=== PATIENT | male | born 1985 | race Two or more races ===

== ENCOUNTER 2018-01-17 20:10 | Emergency (ER) | payer BC ==
[~2018-01-17] VITALS: Ht 167.6 cm; Wt 75.7 kg
--- NOTE | 2018-01-17 20:26 | NUR ---
Dr. Bardales at bedside for MSE.
[2018-01-17 20:54] LABS: BASOPHILS % (AUTO) 0.4 % (0.0-2.0); EOSINOPHILS # (AUTO) 0.2 K/uL (0.0-0.7); EOSINOPHILS % (AUTO) 2.8 % (0.0-7.0); HEMATOCRIT 41.1 % (36.7-47.1); HEMOGLOBIN 14.2 g/dL (12.5-16.3); LYMPHOCYTES # (AUTO) 2.8 K/uL (20.0-40.0); LYMPHOCYTES % (AUTO) 46.6 % (20.5-51.5); MEAN CORPUSCULAR HEMOGLOBIN 31.2 uug (23.8-33.4); MEAN CORPUSCULAR HGB CONC 35 g/dL (32.5-36.3); MONOCYTES # (AUTO) 0.6 K/uL (2.0-10.0); MONOCYTES % (AUTO) 10.5 % (0.0-11.0); NEUTROPHILS # (AUTO) 2.4 K/uL (1.8-8.9); NEUTROPHILS % (AUTO) 39.7 % (38.5-71.5); PLATELET COUNT (AUTO) 257 K/uL (152-348); RED BLOOD CELL COUNT(AUTO) 4.57 MIL/uL (4.06-5.63); WHITE BLOOD COUNT (AUTO) 6.1 K/uL (3.6-10.2)
[2018-01-17 21:07] LABS: CREATININE 0.9 mg/dL (0.6-1.3); POTASSIUM 3.8 mmol/L (3.5-5.1)
[2018-01-17 21:12] LABS: BILIRUBIN,DIRECT 0.1 mg/dL (0.0-0.2); BILIRUBIN,TOTAL 0.3 mg/dL (0.2-1.0); TOTAL PROTEIN, SERUM 7.5 g/dL (6.4-8.2)
--- NOTE | 2018-01-17 22:02 | NUR ---
Patient discharged to home in stable conditon. Written and verbal after care instructions given. Patient verbalizes understanding of instructions. Patient ambulated out of ER with steady gait, no acute signs of distress, VSS, all belongings taken.
[2018-01-17 22:03] VITALS: BP 126/71
== END 2018-01-17 22:04 | disposition home or self-care (01) ==
LOC: ER 20:10
DX: M54.9 Dorsalgia, unspecified (principal); F12.10 Cannabis abuse, uncomplicated
CPT/HCPCS: 36415; 71045; 80048; 80076; 84484; 85025; 85379; 85730; 93005; 99285; A4663; 70030-TC